=== PATIENT | male | born 1985 | race Caucasian/White ===

== ENCOUNTER 2017-01-25 10:29 | Emergency (ER) | payer BC, OTHER ==
[2017-01-25 11:32] VITALS: BP 131/72
--- NOTE | 2017-01-25 11:44 | UC ---
General HPI - HPI Summary HPI Summary: Vomiting and diarrhea that started this morning. No blood or fever. No pain. He has some cramping before the diarrhea that promptly resolved. No symptoms or pain. Nothing makes it better or worse. - History of Current Complaint Chief Complaint: UCGI Stated Complaint: VOMITING DIARRHEA Time Seen by Provider: 01/25/17 11:35 Hx Obtained From: Patient Onset/Duration: Gradual Onset, Lasting Hours, Resolved Onset Severity: Moderate Current Severity: None Associated Signs & Symptoms: Positive: Diarrhea, Nausea, Vomiting. Negative: Abdominal Pain, Back Pain, Cough, Dizziness, Dysuria, Diaphoresis, Edema, Fever , Headache - Allergy/Home Medications Allergies/Adverse Reactions: Allergies Allergy/AdvReac Type Severity Reaction Status Date / Time No Known Allergies Allergy Verified 01/25/17 11:32 PMH/Surg Hx/FS Hx/Imm Hx Previously Healthy: Yes - Surgical History Surgical History: None - Family History Known Family History: Positive: Other - NO gi related family history. - Social History Alcohol Use: Occasionally Substance Use Type: None Smoking Status (MU): Current Some Day Smoker Type: Cigarettes - Immunization History Most Recent Influenza Vaccination: NOT CURRENT Review of Systems Gastrointestinal: Vomiting, Diarrhea All Other Systems Reviewed And Are Negative: Yes Physical Exam Triage Information Reviewed: Yes Appearance: Well-Appearing, No Pain Distress, Well-Nourished Vital Signs: Initial Vital Signs Temp 98.2 F 01/25/17 11:27 Pulse 100 01/25/17 11:27 Resp 18 01/25/17 11:27 BP 131/72 01/25/17 11:27 Pulse Ox 98 01/25/17 11:27 Eyes: Positive: Conjunctiva Clear. Negative: Conjunctiva Inflamed ENT: Positive: Normal ENT inspection, Hearing grossly normal, Pharynx normal, Pharyngeal erythema, Nasal congestion, Nasal drainage, TMs normal, Uvula midline. Negative: Tonsillar swelling, Tonsillar exudate, Trismus, Muffled voice, Hoarse voice, Sinus tenderness Neck: Positive: Supple, Nontender, No Lymphadenopathy Respiratory: Positive: Lungs clear, Normal breath sounds, No respiratory distress, No accessory muscle use. Negative: Respiratory distress, Decreased breath sounds, Accessory muscle use, Crackles, Rhonchi, Stridor Cardiovascular: Positive: RRR, No Murmur, Pulses Normal, Brisk Capillary Refill Abdomen Description: Positive: Nontender, No Organomegaly, Soft. Negative: Distended, Guarding Musculoskeletal: Positive: Strength Intact, ROM Intact, No Edema Neurological: Positive: Alert, Muscle Tone Normal. Negative: Fatigued Psychological: Positive: Age Appropriate Behavior Skin: Negative: rashes Course/Dx - Course Course Of Treatment: NO red flags or worrisome features such as presence of blood, fever, pain. - Differential Dx - Multi-Symptom Provider Diagnoses: Gastroenteritis. Discharge - Discharge Plan Condition: Good Disposition: HOME Prescriptions: Ondansetron ODT TAB* [Zofran 4 MG Odt TAB*] 4 mg PO Q6H PRN #12 tab.odt PRN Reason: Nausea Patient Education Materials: Acute Nausea and Vomiting (ED) Forms: *Work Release Referrals: No Primary Care Phys,NOPCP [Primary Care Provider] - Additional Instructions: REturn here for any worsening.
== END 2017-01-25 11:48 | disposition home or self-care (01) ==
LOC: UCCORT 10:29
DX: K52.9 Noninfective gastroenteritis and colitis, unspecified (principal); Z72.0 Tobacco use
CPT/HCPCS: 99202; G0463